=== PATIENT | female | born 1995 | race Caucasian/White ===

== ENCOUNTER 2019-03-28 20:12 | Inpatient (IN) ==
[2019-03-29] MEDS ORDERED: Piperacillin/Tazobactam 3.375 GM in 0.9 % Sodium Chloride Mini Bag 100 ML IVPB ONE (01:04)
[2019-03-29] MEDS ORDERED: Ondansetron 4 MG/2 ML VIAL IVP ONE ×2 (01:05→13:42)
[2019-03-29] MEDS ORDERED: Morphine Sulfate 2 MG/ML SYRINGE IVP ONE (01:05)
[2019-03-29] MEDS: 0.9 % Sodium Chloride 1,000 ML IVC SCH ×3 (01:29→21:13)
[2019-03-29 02:20] LABS: Immature Granulocytes % 0.5 % (0-4); Red Cell Distribution Width 13.4 % (11.5-14.5)
[2019-03-29 02:21] LABS: Basophils % 0.7 %; Eosinophils % 0.7 %; Hematocrit 36.4 % (35.3-44.9); Hemoglobin 11.8 g/dL (11.5-15.4); Lymphocytes # 2.2 K/mcL (0.6-4.6); Lymphocytes % 36.9 %; Mean Corpuscular HGB Conc 32.4 g/dL (31.6-35.5); Mean Corpuscular Hemoglobin 28.1 pg (28.0-33.3); Mean Corpuscular Volume 86.7 fL (83.0-100.0); Mean Platelet Volume 8.2 fL (9.4-12.4); Monocytes # 0.5 K/mcL (0.0-1.3); Monocytes % 8.3 %; Neutrophils # 3.2 K/mcL (1.6-8.9); Platelet Count 411 K/mcL (140-400); Segmented Neutrophils % 52.9 %
[2019-03-29 02:23] LABS: INR 1.1; Prothrombin Time 12.4 Seconds (9.4-12.1)
[2019-03-29 02:25] LABS: Activated Partial Thrombo Time 32.2 Seconds (26.0-36.0)
[2019-03-29 02:39] LABS: Alanine Aminotransferase 25 Units/L (7-52); Albumin 3.8 g/dL (3.5-5.7); Albumin/Globulin Ratio 1.2 (1.1-2.2); Alkaline Phosphatase 71 Units/L (34-104); Aspartate Amino Transferase 19 Units/L (13-39); BUN/Creatinine Ratio 10 (6-26); Bilirubin,Total 0.5 mg/dL (0.3-1.0); Blood Urea Nitrogen 6 mg/dL (6-20); Carbon Dioxide 25 mEq/L (23-29); Chloride 104 mEq/L (98-107); Globulin 3.3 g/dL (2.4-3.5); Glucose 82 mg/dL (70-105); Osmolality,Calculated 283 (280-300); Potassium 3.8 mEq/L (3.5-5.1); Sodium 138 mEq/L (136-145); Total Protein 7.1 g/dL (6.4-8.9); eGFR For African Americans > 60 (> 60); eGFR For Non-African Americans > 60 (> 60)
[2019-03-29] MEDS ORDERED: 0.9 % Sodium Chloride 1,000 ML IVC SCH (04:00)
[2019-03-29] MEDS ORDERED: Ondansetron 4 MG/2 ML VIAL IVP PRN (04:18)
[2019-03-29] MEDS ORDERED: Ondansetron 4 MG/2 ML VIAL IVP SCH (06:00)
[2019-03-29] MEDS ORDERED: Piperacillin/Tazobactam 3.375 GM in 0.9 % Sodium Chloride Mini Bag 100 ML IVPB SCH (08:00)
[2019-03-29] MEDS: Piperacillin/Tazobactam 3.375 GM in 0.9 % Sodium Chloride Mini Bag 100 ML IVPB SCH (08:10)
[2019-03-29] MEDS ORDERED: Naloxone 0.4 MG/ML INJ IVP PRN ×2 (10:56→20:17)
[2019-03-29] MEDS ORDERED: *HR* OxyCODONE Immed Rel 5 MG TABLET PO PRN (13:42)
[2019-03-29] MEDS ORDERED: *HR* Promethazine 25 MG/ML VIAL IVP PRN (13:42)
[2019-03-29] MEDS ORDERED: *HR* HYDROmorphone (PF) 1 MG/ML SYRINGE IVP PRN (13:43)
[2019-03-29] MEDS ORDERED: Acetaminophen IV 1,000 MG/100 ML INFUS..BTL ONE (14:44)
[2019-03-29] MEDS ORDERED: *HR* HYDROMORPHONE 2 MG/ML VIAL ONE ×2 (14:44→16:02)
[2019-03-29] MEDS ORDERED: Lidocaine -MPF 2% 2 ML VIAL ONE (14:48)
[2019-03-29] MEDS ORDERED: Dexamethasone 4 MG/ML VIAL ONE ×2 (14:48→17:03)
[2019-03-29] MEDS ORDERED: *HR* Midazolam HCl 2 MG/2 ML VIAL ONE (14:48)
[2019-03-29] MEDS ORDERED: *HR* Rocuronium Bromide 50 MG/5 ML VIAL ONE ×2 (14:48→15:45)
[2019-03-29] MEDS ORDERED: *HR* FentaNYL (PF) 100 MCG/2 ML VIAL ONE (14:48)
[2019-03-29] MEDS ORDERED: *HR* Succinylcholine 200 MG/10 ML VIAL IVP ONE (14:48)
[2019-03-29] MEDS ORDERED: Ondansetron 4 MG/2 ML VIAL ONE (14:48)
[2019-03-29] MEDS ORDERED: *HR* Propofol 200 MG/20 ML VIAL IVP ONE (14:48)
[2019-03-29] MEDS ORDERED: Ketorolac 30 MG/ML VIAL ONE (16:21)
[2019-03-29] MEDS ORDERED: Albuterol 2.5 MG/3 ML NEBULIZER ONE (17:49)
[2019-03-29] MEDS ORDERED: Lidocaine 1% 20 ML MDV ONE ×2 (18:38→18:55)
[2019-03-29] MEDS ORDERED: *HR* HYDROmorphone 20 MG/20 ML PCA IVC PRN (20:17)
[2019-03-29] MEDS ORDERED: Ketorolac 30 MG/ML VIAL IVP ONE (20:17)
[2019-03-29] MEDS ORDERED: Acetaminophen IV 1,000 MG/100 ML INFUS..BTL IVPB ONE (20:17)
[2019-03-30] MEDS: Piperacillin/Tazobactam 3.375 GM in 0.9 % Sodium Chloride Mini Bag 100 ML IVPB SCH ×4 (00:09→23:50)
[2019-03-30] MEDS: Ketorolac 15 MG/ML VIAL IVP SCH ×5 (00:09→23:49)
[2019-03-30] MEDS: 0.9 % Sodium Chloride 1,000 ML IVC SCH ×3 (05:32→21:25)
[2019-03-30] MEDS: PARoxetine 20 MG TABLET PO SCH (08:52)
[2019-03-31] MEDS: Ketorolac 15 MG/ML VIAL IVP SCH ×4 (05:09→23:25)
[2019-03-31] MEDS: 0.9 % Sodium Chloride 1,000 ML IVC SCH ×3 (05:09→20:49)
[2019-03-31] MEDS: Piperacillin/Tazobactam 3.375 GM in 0.9 % Sodium Chloride Mini Bag 100 ML IVPB SCH ×3 (08:32→23:26)
[2019-03-31] MEDS: PARoxetine 20 MG TABLET PO SCH (08:33)
[2019-03-31] MEDS ORDERED: Morphine Sulfate Oral CONC 10 MG/0.5 ML ORAL.SYG SL PRN (12:04)
[2019-03-31] MEDS: Acetaminophen IV 1,000 MG/100 ML INFUS..BTL IVPB SCH ×3 (12:45→23:25)
[2019-04-01] MEDS: 0.9 % Sodium Chloride 1,000 ML IVC SCH ×2 (04:49→10:54)
[2019-04-01] MEDS: Acetaminophen IV 1,000 MG/100 ML INFUS..BTL IVPB SCH ×4 (05:01→18:33)
[2019-04-01] MEDS: Ketorolac 15 MG/ML VIAL IVP SCH ×3 (05:01→18:34)
[2019-04-01 07:43] LABS: Basophils % 0.2 %; Eosinophils # 0.1 K/mcL (0.0-0.6); Eosinophils % 1.3 %; Hematocrit 29.3 % (35.3-44.9); Immature Granulocytes % 0.6 % (0-4); Lymphocytes # 1.7 K/mcL (0.6-4.6); Lymphocytes % 18.5 %; Mean Corpuscular HGB Conc 32.8 g/dL (31.6-35.5); Mean Corpuscular Hemoglobin 28.2 pg (28.0-33.3); Mean Corpuscular Volume 85.9 fL (83.0-100.0); Mean Platelet Volume 8.3 fL (9.4-12.4); Monocytes # 0.6 K/mcL (0.0-1.3); Monocytes % 6.4 %; Neutrophils # 6.5 K/mcL (1.6-8.9); Platelet Count 366 K/mcL (140-400); Red Blood Count 3.41 M/mcL (3.82-4.97); Red Cell Distribution Width 12.7 % (11.5-14.5)
[2019-04-01 07:49] LABS: Hemoglobin 9.6 g/dL (11.5-15.4)
[2019-04-01 08:01] LABS: BUN/Creatinine Ratio 10 (6-26); Blood Urea Nitrogen 4 mg/dL (6-20); Calcium 8.1 mg/dL (8.6-10.3); Carbon Dioxide 22 mEq/L (23-29); Chloride 106 mEq/L (98-107); Glucose 77 mg/dL (70-105); Osmolality,Calculated 282 (280-300); Potassium 3.4 mEq/L (3.5-5.1); Sodium 138 mEq/L (136-145); eGFR For African Americans > 60 (> 60); eGFR For Non-African Americans > 60 (> 60)
[2019-04-01] MEDS: Piperacillin/Tazobactam 3.375 GM in 0.9 % Sodium Chloride Mini Bag 100 ML IVPB SCH ×3 (09:00→18:34)
[2019-04-01] MEDS: PARoxetine 20 MG TABLET PO SCH (09:01)
[2019-04-01] MEDS ORDERED: Naloxone 0.4 MG/ML INJ IVP PRN (09:32)
[2019-04-01] MEDS ORDERED: Morphine Sulfate Oral CONC 10 MG/0.5 ML ORAL.SYG SL PRN (09:32)
[2019-04-02] MEDS: Ketorolac 15 MG/ML VIAL IVP SCH ×3 (00:48→13:09)
[2019-04-02] MEDS: Acetaminophen IV 1,000 MG/100 ML INFUS..BTL IVPB SCH ×3 (00:48→13:09)
[2019-04-02] MEDS: Piperacillin/Tazobactam 3.375 GM in 0.9 % Sodium Chloride Mini Bag 100 ML IVPB SCH ×2 (00:49→08:42)
[2019-04-02] MEDS ORDERED: PARoxetine 20 MG TABLET PO SCH (09:00)
[2019-04-02 10:19] VITALS: BP 137/94
== END 2019-04-02 16:47 | disposition home or self-care (01) | DRG 231 ==
LOC: 3BNU 20:12 → EMEROOARM 20:12 → 3BNU 03-29 03:17 → ICNU 03-29 20:12 → 3ANU 04-01 10:27
PROVIDERS: ADMIT Surgery; ATTEND Surgery